=== PATIENT | female | born 1945 | race Caucasian/White ===

== ENCOUNTER 2021-05-26 11:05 | Inpatient (IN) ==
[2021-05-26] MEDS ORDERED: ASPIRIN 325 MG TABLET PO STA (11:36)
[2021-05-26 12:28] LABS: Basophils # 0.1 10*3/uL (0.0-0.2); Eosinophils # 0.2 10*3/uL (0.0-0.87); Hematocrit 46.7 VOL% (35.7-47.0); Hemoglobin 15.5 GM/DL (12.0-16.0); Immature Granulocytes % 0.4 %; Immature Granulocytes Absolute 0.03 #; Lymphocytes # 2.9 10*3/uL (1.4-4.0); Lymphocytes % 36.3 % (21.3-54.2); Mean Corpuscular HGB Conc 33.2 GM/DL (32-36); Mean Corpuscular Volume 89.3 FL (87-102); Mean Platelet Volume 9.4 FL (9.6-12.0); Neutrophils % 47.3 % (38.7-73.9); Platelet Count 267 T/CUMM (130-400); Red Blood Count 5.23 MC/CUMM (3.8-5.5); Red Cell Distribution Width 12.6 % (9.3-17.3); White Blood Count 7.9 T/CUMM (4-12)
[2021-05-26 13:03] LABS: Bacteria,Urine Moderate /HPF (Few); Bilirubin,Urine Negative (Negative); Blood, Urine Negative (Negative); Glucose,Urine (UA) Negative (Negative); Ketones,Urine Negative (Negative); Nitrite,Urine Negative (Negative); Protein,Urine Negative; RBC,Urine 1 /HPF (0-4); Squamous Epithelial Cell,Urine Occasional /HPF (0-10); Urine Appearance CLEAR (Clear); Urine Color Colorless (Yellow); Urine Specific Gravity 1.001 (1.001-1.035); Urine Urobilinogen < 2.0 EU/DL (0.2-1.0)
[2021-05-26 13:16] LABS: Albumin 4.1 G/DL (3.4-5.0); Bilirubin,Total 1.6 MG/DL (0.20-1.00); Calcium 9.5 MG/DL (8.5-10.1); Osmolality,Calculated 271.1 MOS/KG (273-304); Total Protein 7.9 G/DL (6.4-8.2)
[2021-05-26] MEDS ORDERED: ACETAMINOPHEN 325 MG TABLET PO PRN (13:40)
[2021-05-26] MEDS ORDERED: DEXTROSE 50% 25 GM/50 ML VIAL IV PRN (13:40)
[2021-05-26] MEDS ORDERED: ONDANSETRON 4 MG/2 ML VIAL IV PRN (13:40)
[2021-05-26] MEDS ORDERED: LABETALOL 20 MG/4 ML SYRINGE IV PRN (13:40)
[2021-05-26] MEDS ORDERED: hydrALAZINE 20 MG/1 ML VIAL IV PRN (13:40)
[2021-05-26] MEDS ORDERED: GLUCAGON 1 MG VIAL IM PRN (13:40)
[2021-05-26] MEDS: ENOXAPARIN 40 MG/0.4 ML SYRINGE SUBCUT SCH (14:18)
[2021-05-26] MEDS ORDERED: LORazepam 2 MG/1 ML VIAL IV STA (14:44)
[2021-05-26 14:45] LABS: Risk Ratio 3.9; VLDL Cholesterol 34.2 MG/DL
[2021-05-26] MEDS: SODIUM CHLORIDE 0.9% 1,000 ML IV SCH (18:54)
[2021-05-26] MEDS: carvediloL 25 MG TABLET PO SCH (20:28)
[2021-05-26] MEDS ORDERED: ATORVASTATIN 20 MG TABLET PO SCH (21:00)
[2021-05-27 06:30] LABS: Basophils # 0.1 10*3/uL (0.0-0.2); Basophils % 0.8 % (0.0-0.8); Eosinophils # 0.1 10*3/uL (0.0-0.87); Eosinophils % 1.6 % (0.00-10.9); Hematocrit 45.9 VOL% (35.7-47.0); Immature Granulocytes % 0.4 %; Immature Granulocytes Absolute 0.03 #; Lymphocytes # 2.4 10*3/uL (1.4-4.0); Lymphocytes % 28.4 % (21.3-54.2); Mean Corpuscular HGB Conc 32.7 GM/DL (32-36); Mean Platelet Volume 11.4 FL (9.6-12.0); Monocytes % 15.6 % (1.7-12.7); Neutrophils % 53.2 % (38.7-73.9); Platelet Count 156 T/CUMM (130-400); Red Cell Distribution Width 12.9 % (9.3-17.3); White Blood Count 8.3 T/CUMM (4-12)
[2021-05-27] MEDS ORDERED: LEVOTHYROXINE 125 MCG TABLET PO SCH (06:30)
[2021-05-27 06:52] LABS: Atypical Lymphocytes Few; Band Neutrophils 1 % (0-10); Eosinophils 3 % (0-10); Hypochromasia 1+; Lymphocytes 29 % (20-55); Microcytosis 1+; Ovalocytes Slight; Segmented Neutrophils 53 % (50-85); Total Cells Counted 100
[2021-05-27 07:27] LABS: Osmolality,Calculated 284.4 MOS/KG (273-304); Potassium 4.3 MMOL/L (3.5-5.1); Risk Ratio 3.91; Thyroid Stimulating Hormone 0.157 uIU/ml (0.358-3.74); VLDL Cholesterol 36.2 MG/DL
[2021-05-27] MEDS: SODIUM CHLORIDE 0.9% 1,000 ML IV SCH (07:45)
[2021-05-27] MEDS ORDERED: ASPIRIN 325 MG TABLET PO SCH (09:00)
[2021-05-27] MEDS ORDERED: amLODIPine 10 MG TABLET PO SCH (09:00)
[2021-05-27] MEDS ORDERED: LOSARTAN 50 MG TABLET PO SCH (09:00)
[2021-05-27] MEDS: POTASSIUM CHLORIDE 20 MEQ TABLET PO SCH (10:27)
[2021-05-27] MEDS: MONTELUKAST 10 MG TABLET PO SCH (10:27)
[2021-05-27] MEDS: carvediloL 25 MG TABLET PO SCH ×2 (10:28→21:30)
[2021-05-27] MEDS: PANTOPRAZOLE 40 MG TABLET PO SCH (10:28)
[2021-05-27] MEDS: MAGNESIUM CHLORIDE 64 MG TABLET PO SCH (10:28)
[2021-05-27] MEDS: LOSARTAN 50 MG TABLET PO SCH (13:12)
[2021-05-27] MEDS: amLODIPine 10 MG TABLET PO SCH (13:12)
[2021-05-27] MEDS: ENOXAPARIN 40 MG/0.4 ML SYRINGE SUBCUT SCH (14:08)
[2021-05-27] MEDS ORDERED: DOCUSATE SODIUM 100 MG CAPSULE PO PRN (16:15)
[2021-05-27] MEDS ORDERED: ATORVASTATIN 40 MG TABLET PO SCH (21:00)
[2021-05-28] MEDS: SODIUM CHLORIDE 0.9% 1,000 ML IV SCH (03:56)
[2021-05-28 05:47] LABS: Basophils # 0.1 10*3/uL (0.0-0.2); Basophils % 1.3 % (0.0-0.8); Eosinophils # 0.2 10*3/uL (0.0-0.87); Eosinophils % 2.9 % (0.00-10.9); Hematocrit 43.3 VOL% (35.7-47.0); Hemoglobin 14.4 GM/DL (12.0-16.0); Immature Granulocytes % 0.1 %; Immature Granulocytes Absolute 0.01 #; Lymphocytes # 2.9 10*3/uL (1.4-4.0); Lymphocytes % 40.3 % (21.3-54.2); Mean Corpuscular HGB Conc 33.3 GM/DL (32-36); Mean Corpuscular Volume 90.2 FL (87-102); Mean Platelet Volume 10.4 FL (9.6-12.0); Monocytes % 13.5 % (1.7-12.7); Neutrophils % 41.9 % (38.7-73.9); Platelet Count 217 T/CUMM (130-400); Red Cell Distribution Width 12.8 % (9.3-17.3); White Blood Count 7.2 T/CUMM (4-12)
[2021-05-28] MEDS ORDERED: LEVOTHYROXINE 137 MCG TABLET PO SCH (06:30)
[2021-05-28 06:40] LABS: Osmolality,Calculated 282.4 MOS/KG (273-304); Potassium 3.8 MMOL/L (3.5-5.1)
[2021-05-28 08:06] VITALS: BP 128/72
[2021-05-28] MEDS ORDERED: ASPIRIN EC 81 MG TABLET PO SCH (09:00)
[2021-05-28] MEDS ORDERED: CLOPIDOGREL 75 MG TABLET PO SCH (09:00)
[2021-05-28] MEDS ORDERED: ASCORBIC ACID 500 MG TABLET PO SCH (09:00)
[2021-05-28] MEDS: MAGNESIUM CHLORIDE 64 MG TABLET PO SCH (09:46)
[2021-05-28] MEDS: POTASSIUM CHLORIDE 20 MEQ TABLET PO SCH (09:46)
[2021-05-28] MEDS: PANTOPRAZOLE 40 MG TABLET PO SCH (09:46)
[2021-05-28] MEDS: LOSARTAN 50 MG TABLET PO SCH (09:47)
[2021-05-28] MEDS: MONTELUKAST 10 MG TABLET PO SCH (09:47)
[2021-05-28] MEDS: amLODIPine 10 MG TABLET PO SCH (09:47)
[2021-05-28] MEDS: carvediloL 25 MG TABLET PO SCH (09:47)
== END 2021-05-28 12:45 | DRG 65 ==
LOC: N.ED 11:05 → SUATTDRO 13:40 → N.EDINP 13:40 → N.TELES 16:59
PROVIDERS: ADMIT Internal Medicine; ATTEND Hospitalist

== ENCOUNTER 2021-11-14 14:57 | Inpatient (IN) ==
[2021-11-14] MEDS ORDERED: SODIUM CHLORIDE 0.9% 500 ML IV STA (15:38)
[2021-11-14 15:59] LABS: Basophils % 0.3 % (0.0-0.8); Eosinophils # 0.1 10*3/uL (0.0-0.87); Eosinophils % 0.8 % (0.00-10.9); Hematocrit 44.3 VOL% (35.7-47.0); Hemoglobin 14.8 GM/DL (12.0-16.0); Immature Granulocytes % 0.5 %; Immature Granulocytes Absolute 0.08 #; Lymphocytes # 2.3 10*3/uL (1.4-4.0); Lymphocytes % 15.4 % (21.3-54.2); Mean Corpuscular HGB Conc 33.4 GM/DL (32-36); Mean Corpuscular Volume 88.6 FL (87-102); Mean Platelet Volume 9.7 FL (9.6-12.0); Monocytes % 13.9 % (1.7-12.7); Neutrophils % 69.1 % (38.7-73.9); Platelet Count 252 T/CUMM (130-400); Red Cell Distribution Width 13.9 % (9.3-17.3); White Blood Count 14.8 T/CUMM (4-12)
[2021-11-14 16:06] LABS: Calcium 8.8 MG/DL (8.5-10.1); Osmolality,Calculated 269.4 MOS/KG (273-304); Potassium 3.9 MMOL/L (3.5-5.1)
[2021-11-14 16:16] LABS: Mucus,Urine Occasional /LPF (Occasional); RBC,Urine 1 /HPF (0-4); Squamous Epithelial Cell,Urine Occasional /HPF (0-10)
[2021-11-14 16:17] LABS: Bilirubin,Urine Negative (Negative); Blood, Urine Negative (Negative); Glucose,Urine (UA) Negative (Negative); Ketones,Urine Negative (Negative); Nitrite,Urine Negative (Negative); Protein,Urine Negative (Negative); Urine Appearance Clear (Clear); Urine Color Yellow (Yellow)
[2021-11-14] MEDS ORDERED: ONDANSETRON 4 MG/2 ML VIAL IV PRN (17:10)
[2021-11-14] MEDS ORDERED: GLUCAGON 1 MG VIAL IM PRN (17:10)
[2021-11-14] MEDS ORDERED: MAGNESIUM SULF RIDER 4 GM/100 ML PREMIX IV PRN (17:10)
[2021-11-14] MEDS ORDERED: MAGNESIUM SULF RIDER 2 GM/50 ML PREMIX IV PRN (17:10)
[2021-11-14] MEDS ORDERED: DEXTROSE 10% 250 ML BAG IV PRN (17:28)
[2021-11-14] MEDS: cefTRIAXone 1,000 MG in SODIUM CHLORIDE 0.9% 100 ML IV SCH (17:46)
[2021-11-14] MEDS: SODIUM CHLOR 0.9% KCL 20 MEQ 20 MEQ/1,000 ML BAG IV SCH (18:17)
[2021-11-14] MEDS: AZITHROMYCIN INJ 500 MG in SODIUM CHLORIDE 0.9% 250 ML IV SCH (18:18)
[2021-11-14] MEDS: carvediloL 25 MG TABLET PO SCH (20:44)
[2021-11-14] MEDS: ATORVASTATIN 40 MG TABLET PO SCH (20:44)
[2021-11-15] MEDS: ALBUTEROL/IPRATROPIUM 3 ML NEB RESP TX SCH ×5 (00:50→19:22)
[2021-11-15 04:34] LABS: Basophils % 0.2 % (0.0-0.8); Eosinophils # 0.1 10*3/uL (0.0-0.87); Eosinophils % 0.9 % (0.00-10.9); Hematocrit 44.2 VOL% (35.7-47.0); Hemoglobin 14.3 GM/DL (12.0-16.0); Immature Granulocytes % 0.6 %; Immature Granulocytes Absolute 0.08 #; Lymphocytes # 2.2 10*3/uL (1.4-4.0); Lymphocytes % 16.8 % (21.3-54.2); Mean Corpuscular HGB Conc 32.4 GM/DL (32-36); Mean Corpuscular Volume 89.8 FL (87-102); Mean Platelet Volume 9.4 FL (9.6-12.0); Monocytes % 14.9 % (1.7-12.7); Neutrophils % 66.6 % (38.7-73.9); Platelet Count 261 T/CUMM (130-400); Red Blood Count 4.92 MC/CUMM (3.8-5.5); Red Cell Distribution Width 13.9 % (9.3-17.3); White Blood Count 13.1 T/CUMM (4-12)
[2021-11-15 04:50] LABS: Calcium 8.7 MG/DL (8.5-10.1); Osmolality,Calculated 270.1 MOS/KG (273-304); Potassium 3.7 MMOL/L (3.5-5.1)
[2021-11-15] MEDS: LEVOTHYROXINE 137 MCG TABLET PO SCH (05:59)
[2021-11-15] MEDS: SODIUM CHLOR 0.9% KCL 20 MEQ 20 MEQ/1,000 ML BAG IV SCH ×3 (06:00→18:31)
[2021-11-15] MEDS: MONTELUKAST 10 MG TABLET PO SCH (08:45)
[2021-11-15] MEDS: ASPIRIN CHEW 81 MG TABLET PO SCH (08:45)
[2021-11-15] MEDS: CLOPIDOGREL 75 MG TABLET PO SCH (08:45)
[2021-11-15] MEDS: LOSARTAN 50 MG TABLET PO SCH (08:45)
[2021-11-15] MEDS: PANTOPRAZOLE 40 MG TABLET PO SCH (08:45)
[2021-11-15] MEDS: carvediloL 25 MG TABLET PO SCH ×2 (08:45→20:18)
[2021-11-15] MEDS: IBUPROFEN 600 MG TABLET PO PRN (11:25)
[2021-11-15] MEDS: cefTRIAXone 1,000 MG in SODIUM CHLORIDE 0.9% 100 ML IV SCH (18:30)
[2021-11-15] MEDS: AZITHROMYCIN INJ 500 MG in SODIUM CHLORIDE 0.9% 250 ML IV SCH (19:30)
[2021-11-15] MEDS: ATORVASTATIN 40 MG TABLET PO SCH (20:18)
[2021-11-16] MEDS: ALBUTEROL/IPRATROPIUM 3 ML NEB RESP TX SCH ×4 (00:31→19:20)
[2021-11-16] MEDS: SODIUM CHLOR 0.9% KCL 20 MEQ 20 MEQ/1,000 ML BAG IV SCH ×4 (06:13→18:38)
[2021-11-16] MEDS ORDERED: LEVOTHYROXINE 125 MCG TABLET PO SCH (06:30)
[2021-11-16] MEDS: LOSARTAN 50 MG TABLET PO SCH (08:39)
[2021-11-16] MEDS: ASPIRIN CHEW 81 MG TABLET PO SCH (08:39)
[2021-11-16] MEDS: CLOPIDOGREL 75 MG TABLET PO SCH (08:39)
[2021-11-16] MEDS: MONTELUKAST 10 MG TABLET PO SCH (08:39)
[2021-11-16] MEDS: cefTRIAXone 1,000 MG in SODIUM CHLORIDE 0.9% 100 ML IV SCH (08:40)
[2021-11-16] MEDS: carvediloL 25 MG TABLET PO SCH ×2 (08:40→20:13)
[2021-11-16] MEDS: PANTOPRAZOLE 40 MG TABLET PO SCH (08:40)
[2021-11-16] MEDS: IBUPROFEN 600 MG TABLET PO PRN (10:45)
[2021-11-16 10:58] LABS: Basophils # 0.1 10*3/uL (0.0-0.2); Basophils % 0.5 % (0.0-0.8); Eosinophils # 0.2 10*3/uL (0.0-0.87); Eosinophils % 1.3 % (0.00-10.9); Hematocrit 47.4 VOL% (35.7-47.0); Hemoglobin 15.2 GM/DL (12.0-16.0); Immature Granulocytes % 0.7 %; Immature Granulocytes Absolute 0.09 #; Lymphocytes # 1.7 10*3/uL (1.4-4.0); Lymphocytes % 13.6 % (21.3-54.2); Mean Corpuscular HGB Conc 32.1 GM/DL (32-36); Mean Corpuscular Volume 89.9 FL (87-102); Mean Platelet Volume 8.8 FL (9.6-12.0); Monocytes % 13.2 % (1.7-12.7); Neutrophils % 70.7 % (38.7-73.9); Platelet Count 278 T/CUMM (130-400); Red Blood Count 5.27 MC/CUMM (3.8-5.5); White Blood Count 12.2 T/CUMM (4-12)
[2021-11-16 11:28] LABS: Calcium 9.1 MG/DL (8.5-10.1); Potassium 4.1 MMOL/L (3.5-5.1)
[2021-11-16] MEDS: AZITHROMYCIN INJ 500 MG in SODIUM CHLORIDE 0.9% 250 ML IV SCH (17:18)
[2021-11-16] MEDS: ATORVASTATIN 40 MG TABLET PO SCH (20:12)
[2021-11-17] MEDS: ALBUTEROL/IPRATROPIUM 3 ML NEB RESP TX SCH ×2 (01:20→07:09)
[2021-11-17] MEDS: SODIUM CHLOR 0.9% KCL 20 MEQ 20 MEQ/1,000 ML BAG IV SCH (04:10)
[2021-11-17 05:27] LABS: Basophils # 0.1 10*3/uL (0.0-0.2); Basophils % 0.6 % (0.0-0.8); Eosinophils # 0.3 10*3/uL (0.0-0.87); Eosinophils % 2.7 % (0.00-10.9); Hematocrit 40.9 VOL% (35.7-47.0); Hemoglobin 13.3 GM/DL (12.0-16.0); Immature Granulocytes % 0.8 %; Immature Granulocytes Absolute 0.07 #; Lymphocytes # 2.1 10*3/uL (1.4-4.0); Lymphocytes % 22.3 % (21.3-54.2); Mean Corpuscular HGB Conc 32.5 GM/DL (32-36); Mean Corpuscular Volume 90.1 FL (87-102); Mean Platelet Volume 9.2 FL (9.6-12.0); Monocytes % 14.9 % (1.7-12.7); Neutrophils % 58.7 % (38.7-73.9); Platelet Count 263 T/CUMM (130-400); Red Blood Count 4.54 MC/CUMM (3.8-5.5); White Blood Count 9.3 T/CUMM (4-12)
[2021-11-17 05:47] LABS: Calcium 8.2 MG/DL (8.5-10.1); Osmolality,Calculated 274.7 MOS/KG (273-304); Potassium 4.4 MMOL/L (3.5-5.1)
[2021-11-17 05:50] LABS: Albumin 2.2 G/DL (3.4-5.0); Bilirubin,Total 0.5 MG/DL (0.20-1.00); Calcium 8.2 MG/DL (8.5-10.1); Osmolality,Calculated 278.5 MOS/KG (273-304); Potassium 4.6 MMOL/L (3.5-5.1); Risk Ratio 3.1; Total Protein 6.1 G/DL (6.4-8.2); VLDL Cholesterol 15.2 MG/DL
[2021-11-17] MEDS: LEVOTHYROXINE 137 MCG TABLET PO SCH (06:01)
[2021-11-17 08:00] VITALS: BP 154/72
[2021-11-17] MEDS ORDERED: AZITHROMYCIN 250 MG TABLET PO SCH (09:00)
[2021-11-17] MEDS: LOSARTAN 50 MG TABLET PO SCH (09:08)
[2021-11-17] MEDS: carvediloL 25 MG TABLET PO SCH (09:08)
[2021-11-17] MEDS: PANTOPRAZOLE 40 MG TABLET PO SCH (09:08)
[2021-11-17] MEDS: CLOPIDOGREL 75 MG TABLET PO SCH (09:08)
[2021-11-17] MEDS: MONTELUKAST 10 MG TABLET PO SCH (09:08)
[2021-11-17] MEDS: ASPIRIN CHEW 81 MG TABLET PO SCH (09:08)
[2021-11-17] MEDS: cefTRIAXone 1,000 MG in SODIUM CHLORIDE 0.9% 100 ML IV SCH (09:09)
== END 2021-11-17 11:50 | disposition home health service (06) | DRG 194 ==
LOC: N.EDINP 14:57 → N.ED 14:57 → N.EDINP 19:05 → N.5E 20:27 → SUATTDRO 11-15 11:08
PROVIDERS: ADMIT Internal Medicine; ATTEND Internal Medicine